=== PATIENT | male | born 1945 | race African-American/Black ===

== ENCOUNTER → 2021-02-09 | Day surgery (SDC) | payer MEDICARE ==
[~2021-02-09] MED LIST: ACETAMINOPHEN 500 MG TABLET PO PRN; AMLO5TAB4 PO; BALANCED SALT IRRIG SOLN NO.2 500 ML IO ONE; BENZONATATE 100 MG CAPSULE. PO PRN; BRIMONIDINE 0.2% OPHTH SOLUTION 5ML BOTTLE. OS ONE; CEFUROXIME OPHTH 4 MG/0.4 ML SYRINGE. OS ONE; CHONDROIT-SOD-HYALURONATE KIT. OS ONE; IBUPROFEN 200 MG TABLET PO PRN; IPRATRPIUM/ALBUTEROL 0.5/2.5MG 3 ML NEBU. NEB PRN; IV RINGERS SOLUTION,LACTATED 1,000 ML IV SCH; LIDO/EPI IN BSS OPHTH 2.7 ML SYRINGE. OS ONE; LIDOCAINE 2% JELLY 6ML IN APPLICATOR. ONE; MIDAZOLAM HCL PF 2 MG/2 ML VIAL. IV ONE; MIDAZOLAM HCL PF 2 MG/2 ML VIAL. ONE; ONDANSETRON PF 4 MG/2 ML VIAL. IV PRN; PHENYLEPHRINE 10% OPHTH SOLUTION 5ML BOTTLE. OS PRN; POVIDONE-IODINE 5% OPHTH SOLUTION 30ML BOTTLE. OS ONE; POVIDONE-IODINE 5% OPHTH SOLUTION 30ML BOTTLE. OS PRN; PROPARACAINE 0.5% OPHTH SOLUTION 15ML BOTTLE. OS ONE; PROPARACAINE 0.5% OPHTH SOLUTION 15ML BOTTLE. OS PRN; prednisoLONE ACETATE 1% OPHTH SUSPENSION 5ML BOTTLE. OS ONE
[2021-02-09] MEDS: PHENYLEPHRINE 2.5% OPHTH SOLUTION 2ML BOTTLE. OS SCH ×3 (12:02→12:13)
[2021-02-09] MEDS: TOBRAMYCIN 0.3% OPHTH SOLUTION 5ML BOTTLE. OS SCH ×2 (12:03→12:08)
[2021-02-09] MEDS: TROPICAMIDE 1% OPHTH SOLUTION 15ML BOTTLE. OS SCH ×3 (12:03→12:13)
[2021-02-09] MEDS: KETOROLAC TROMETHAMINE 0.5% OPHTH SOLUTION BOTTLE. OS SCH ×2 (12:03→12:08)
--- NOTE | 2021-02-09 13:31 | PDOC4 ---
SURGEON: Casa Bhatia MD Date of Procedure: 02/09/21 PREOP Diagnosis Visually significant cataract: Left Eye OS POSTOP Diagnosis Same PROCEDURE: Phaco w/ posterior chamber IOL: Left Eye OS ANESTHESIA Deep forniceal periocular 2% Lidocaine jelly Nuique/retro bulbar block with 2% Lidocaine with 0.5% Marcaine DESCRIPTION OF PROCEDURE The risks, benefits, and alternatives were discussed with the patient who elected to proceed. Informed consent was obtained in writing and placed in the chart After anesthetizing the eye topically, the patient was taken to the operating room, and the operative eye was prepped and draped in the usual sterile fashion for ocular surgery. A wire lid speculum was placed. A 1-mm clear corneal paracentesis incision was created with the side-port blade at a position three o'clock hours clockwise from the temporal cornea. Then, 1% non-preserved Lidocaine with epinephrine was injected into the anterior chamber followed by viscoelastic. Cotton-tipped applicators were used to stabilize the globe, and a 2.4 mm keratome was used to create a self-sealing incision in clear cornea at the temporal limbus. The Utrata forceps were used to create a continuous curvilinear capsulorrhexis. Balanced saline solution was injected via cannula beneath the capsulorrhexis edge to hydrodissect the lens nucleus and cortex from the lens capsule. The phacoemulsification handpiece and a chopping instrument were then used to remove the lens nucleus. The remaining epinuclear material and cortex were removed with the irrigation/aspiration handpiece. Vis coelastic was used to re-inflate the lens capsule, and the intraocular lens was injected directly into the capsular bag. The corneal wound edges were hydrated with balanced salt solution on a cannula and the irrigation/aspiration handpiece was used to extract the remaining viscoelastic. Cefuroxime 0.1mg/ml / Vigamox 0.5% was injected into the anterior chamber intracamerally. The wounds were inspected and found to be watertight at an appropriate intraocular pressure. Topical antibiotic drops were placed on the corneal surface. LRI: No If Yes, Number [] Cotter [] Length [] degrees Depth [] microns Incision Cotter: 180 Toric Lens Cotter [] Patch/shield with Maxitrol/Tobradex/Erythromycin ointment: Yes No Co-managed patients/postop examination stable for co-management with referring doctor. EBL EBL: None SPECIMANS COLLECTED Specimens Collected: None CASA BHATIA MD Feb 09, 2021 13:31
[2021-02-09 13:43] VITALS: BP 125/76
== END | disposition home or self-care (01) ==
LOC: SURG 11:27
PROVIDERS: ATTEND Ophthalmology
DX: H25.12 Age-related nuclear cataract, left eye (principal); I10 Essential (primary) hypertension; Z85.038 Personal history of other malignant neoplasm of large intestine; Z98.890 Other specified postprocedural states; Z79.899 Other long term (current) drug therapy; Z72.89 Other problems related to lifestyle; G62.9 Polyneuropathy, unspecified
CPT/HCPCS: 66984; J2250; V2632

== ENCOUNTER → 2021-02-23 | Day surgery (SDC) | payer MEDICARE ==
[~2021-02-23] MED LIST changes: +BRIMONIDINE 0.2% OPHTH SOLUTION 5ML BOTTLE. OD ONE; -BRIMONIDINE 0.2% OPHTH SOLUTION 5ML BOTTLE. OS ONE; +CEFUROXIME OPHTH 4 MG/0.4 ML SYRINGE. OD ONE; -CEFUROXIME OPHTH 4 MG/0.4 ML SYRINGE. OS ONE; +CHONDROIT-SOD-HYALURONATE KIT. OD ONE; -CHONDROIT-SOD-HYALURONATE KIT. OS ONE; +LIDO/EPI IN BSS OPHTH 2.7 ML SYRINGE. OD ONE; -LIDO/EPI IN BSS OPHTH 2.7 ML SYRINGE. OS ONE; +PHENYLEPHRINE 10% OPHTH SOLUTION 5ML BOTTLE. OD PRN; -PHENYLEPHRINE 10% OPHTH SOLUTION 5ML BOTTLE. OS PRN; +POVIDONE-IODINE 5% OPHTH SOLUTION 30ML BOTTLE. OD ONE; +POVIDONE-IODINE 5% OPHTH SOLUTION 30ML BOTTLE. OD PRN; -POVIDONE-IODINE 5% OPHTH SOLUTION 30ML BOTTLE. OS ONE; -POVIDONE-IODINE 5% OPHTH SOLUTION 30ML BOTTLE. OS PRN; +PROPARACAINE 0.5% OPHTH SOLUTION 15ML BOTTLE. OD ONE; +PROPARACAINE 0.5% OPHTH SOLUTION 15ML BOTTLE. OD PRN; -PROPARACAINE 0.5% OPHTH SOLUTION 15ML BOTTLE. OS ONE; -PROPARACAINE 0.5% OPHTH SOLUTION 15ML BOTTLE. OS PRN; +prednisoLONE ACETATE 1% OPHTH SUSPENSION 5ML BOTTLE. OD ONE; -prednisoLONE ACETATE 1% OPHTH SUSPENSION 5ML BOTTLE. OS ONE
[2021-02-23] MEDS: TROPICAMIDE 1% OPHTH SOLUTION 15ML BOTTLE. OD SCH ×3 (10:46→11:00)
[2021-02-23] MEDS: TOBRAMYCIN 0.3% OPHTH SOLUTION 5ML BOTTLE. OD SCH ×2 (10:47→10:51)
[2021-02-23] MEDS: PHENYLEPHRINE 2.5% OPHTH SOLUTION 2ML BOTTLE. OD SCH ×3 (10:47→11:00)
[2021-02-23] MEDS: KETOROLAC TROMETHAMINE 0.5% OPHTH SOLUTION BOTTLE. OD SCH ×2 (10:47→10:51)
--- NOTE | 2021-02-23 12:13 | PDOC4 ---
SURGEON: Casa Bhatia MD Date of Procedure: 02/23/21 PREOP Diagnosis Visually significant cataract: Right Eye OD POSTOP Diagnosis Same PROCEDURE: Phaco w/ posterior chamber IOL: Right Eye OD ANESTHESIA Deep forniceal periocular 2% Lidocaine jelly Unique/retro bulbar block with 2% Lidocaine with 0.5% Marcaine DESCRIPTION OF PROCEDURE The risks, benefits, and alternatives were discussed with the patient who elected to proceed. Informed consent was obtained in writing and placed in the chart After anesthetizing the eye topically, the patient was taken to the operating room, and the operative eye was prepped and draped in the usual sterile fashion for ocular surgery. A wire lid speculum was placed. A 1-mm clear corneal paracentesis incision was created with the side-port blade at a position three o'clock hours clockwise from the temporal cornea. Then, 1% non-preserved Lidocaine with epinephrine was injected into the anterior chamber followed by viscoelastic. Cotton-tipped applicators were used to stabilize the globe, and a 2.4 mm keratome was used to create a self-sealing incision in clear cornea at the temporal limbus. The Utrata forceps were used to create a continuous curvilinear capsulorrhexis. Balanced saline solution was injected via cannula beneath the capsulorrhexis edge to hydrodissect the lens nucleus and cortex from the lens capsule. The phacoemulsification handpiece and a chopping instrument were then used to remove the lens nucleus. The remaining epinuclear material and cortex were removed with the irrigation/aspiration handpiece. V iscoelastic was used to re-inflate the lens capsule, and the intraocular lens was injected directly into the capsular bag. The corneal wound edges were hydrated with balanced salt solution on a cannula and the irrigation/aspiration handpiece was used to extract the remaining viscoelastic. Cefuroxime 0.1mg/ml / Vigamox 0.5% was injected into the anterior chamber intracamerally. The wounds were inspected and found to be watertight at an appropriate intraocular pressure. Topical antibiotic drops were placed on the corneal surface. LRI: No If Yes, Number [] Chalmers [] Length [] degrees Depth [] microns Incision Chalmers: 180 Toric Lens Chalmers [] Patch/shield with Maxitrol/Tobradex/Erythromycin ointment: Yes No Co-managed patients/postop examination stable for co-management with referring doctor. EBL EBL: None SPECIMANS COLLECTED Specimens Collected: None CASA BHATIA MD February 23, 2021 12:13
[2021-02-23 12:23] VITALS: BP 128/69
== END | disposition home or self-care (01) ==
LOC: SURG 10:29
PROVIDERS: ATTEND Ophthalmology
DX: H25.11 Age-related nuclear cataract, right eye (principal); I10 Essential (primary) hypertension; G62.9 Polyneuropathy, unspecified; F17.210 Nicotine dependence, cigarettes, uncomplicated; Z79.899 Other long term (current) drug therapy; Z72.89 Other problems related to lifestyle; Z98.890 Other specified postprocedural states; Z85.038 Personal history of other malignant neoplasm of large intestine
CPT/HCPCS: 66984; J2250; V2632

== ENCOUNTER 2021-09-21 12:00 | Emergency (ER) | payer MEDICARE ==
[2021-02-23 12:23] VITALS: BP 128/69
[~2021-09-21] VITALS: Ht 177.8 cm; Wt 65.9 kg
[~2021-09-21 12:00] MED LIST changes: -ACETAMINOPHEN 500 MG TABLET PO PRN; -BALANCED SALT IRRIG SOLN NO.2 500 ML IO ONE; -BENZONATATE 100 MG CAPSULE. PO PRN; -BRIMONIDINE 0.2% OPHTH SOLUTION 5ML BOTTLE. OD ONE; -CEFUROXIME OPHTH 4 MG/0.4 ML SYRINGE. OD ONE; -CHONDROIT-SOD-HYALURONATE KIT. OD ONE; -IBUPROFEN 200 MG TABLET PO PRN; -IPRATRPIUM/ALBUTEROL 0.5/2.5MG 3 ML NEBU. NEB PRN; -IV RINGERS SOLUTION,LACTATED 1,000 ML IV SCH; -LIDO/EPI IN BSS OPHTH 2.7 ML SYRINGE. OD ONE; -LIDOCAINE 2% JELLY 6ML IN APPLICATOR. ONE; -MIDAZOLAM HCL PF 2 MG/2 ML VIAL. IV ONE; -MIDAZOLAM HCL PF 2 MG/2 ML VIAL. ONE; -ONDANSETRON PF 4 MG/2 ML VIAL. IV PRN; -PHENYLEPHRINE 10% OPHTH SOLUTION 5ML BOTTLE. OD PRN; -POVIDONE-IODINE 5% OPHTH SOLUTION 30ML BOTTLE. OD ONE; -POVIDONE-IODINE 5% OPHTH SOLUTION 30ML BOTTLE. OD PRN; -PROPARACAINE 0.5% OPHTH SOLUTION 15ML BOTTLE. OD ONE; -PROPARACAINE 0.5% OPHTH SOLUTION 15ML BOTTLE. OD PRN; -prednisoLONE ACETATE 1% OPHTH SUSPENSION 5ML BOTTLE. OD ONE
[2021-09-21] MEDS ORDERED: IV NORMAL SALINE 1,000ML 1,000 ML IV ONE (12:45)
[2021-09-21] MEDS ORDERED: ONDANSETRON PF 4 MG/2 ML VIAL. IVP ONE (12:45)
[2021-09-21] MEDS ORDERED: IOHEXOL 300 MG/ML 75 ML VIAL. IV ONE (12:45)
--- NOTE | 2021-09-21 12:47 | PHYS DOC ---
General Adult EDM: Chief Complaint: ABDOMINAL PAIN HPI: HPI: 76-year-old male presents with periumbilical abdominal pain. He has been having intermittent cramping for about a month. He presents today because he became more persistent overnight around midnight and has continued until now. He describes it as a moderate intensity sharp cramping sensation around the umbilicus. The patient is being treated with chemotherapy for colon cancer. He wonders if he is constipated. He has had small pellet stool lately. He denies fever or chills. Denies blood in the stool. Review of Systems: Review of Systems: Constitutional: Denies fever or chills Eyes: Denies change in visual acuity HENT: Denies nasal congestion or sore throat Respiratory: Denies cough or shortness of breath Cardiovascular: Denies chest pain or edema GI: Periumbilical abdominal pain, constipation. Denies nausea, vomiting, bloody stools or diarrhea : Denies dysuria Musculoskeletal: Denies back pain or joint pain Integument: Denies rash Neurologic: Denies headache, focal weakness or sensory changes Endocrine: Denies polyuria or polydipsia Lymphatic: Denies swollen glands Psychiatric: Denies depression or anxiety Allergies: Allergies: Allergies Coded Allergies Type Severity Reaction Last Updated Verified No Known Drug Allergies 02/09/21 No Physical Exam: PE: Constitutional: Well developed, well nourished, no acute distress, non-toxic appearance. [] HENT: Normocephalic, atraumatic, bilateral external ears normal, oropharynx moist, no oral exudates, nose normal. [] Eyes: PERRLA, EOMI, conjunctiva normal, no discharge. [] Neck: Normal range of motion, no tenderness, supple, no stridor. [] Cardiovascular: Heart rate regular rhythm, no murmur [] Lungs & Thorax: Bilateral breath sounds clear to auscultation [] Abdomen: Bowel sounds normal, soft, mild periumbilical tenderness, no masses, no pulsatile masses. [] Skin: Warm, dry, no erythema, no rash. [] Back: No tenderness, no CVA tenderness. [] Extremities: No tenderness, no cyanosis, no clubbing, ROM intact, no edema. [] Neurologic: Alert and oriented X 3, normal motor function, normal sensory function, no focal deficits noted. [] Psychologic: Affect normal, judgement normal, mood normal. [] EKG: EKG: [] Radiology/Procedures: Radiology/Procedures: [] Impressions: EXAM: CT Abdomen and Pelvis without IV contrast CLINICAL HISTORY: Reason: COLON CANCER, SCANS COMPLETED AT COMPARISON: none TECHNIQUE: Helical CT of the abdomen and pelvis without intravenous contrast. Axial, coronal and sagittal reformatted images were generated. PQRS compliance statement - One or more of the following individualized dose reduction techniques were utilized for this study: 1. Automated exposure control 2. Adjustment of the mA and/or kV according to patient size 3. Use of iterative reconstruction technique FINDINGS: Lack of intravenous contrast limits evaluation of solid organs, vasculature, and lymph nodes. Lower chest: Lung bases are clear. Abdomen and Pelvis: Several low density hepatic lesions are seen, for example a right hepatic dome lesion measures 13 mm. High density material dependently within the gallbladder likely sludge. No biliary ductal dilatation. Pancreas is unremarkable. Spleen is normal in appearance. Adrenal glands aren't remarkable. Right upper pole renal cyst. No hydronephrosis. No hydroureter. No renal tract calculus. Bladder is grossly unremarkable. Appendix is unremarkable. Moderate colonic stool content is seen. No small or large bowel dilatation. There is thickening of the sigmoid colon, likely corresponds to provided history of colon cancer. Mild infiltration about the left colon. No abdominal or pelvic lymphadenopathy. No abdominal or pelvic ascites. Bones: No aggressive osseous lesion. Hip joint degenerative changes are seen. Degenerative changes of spine are seen. IMPRESSION: 1. There is thickening of the sigmoid colon, which may correlate with provided history of hemorrhagic colonic malignancy. 2. There is infiltration about the left colon, which may represent colitis. 3. Low-density hepatic lesions, metastatic disease is not excluded and can be correlated with prior imaging or MRI. 4. Within the constraints of this noncontrast examination, no abdominal or pelvic lymphadenopathy is identified. 5. Moderate colonic stool content. Electronically signed by: Yair Washington MD (09/21/2021 2:34 PM) [facility] DICTATED AND SIGNED BY: YAIR WASHINGTON MD DATE: 09/21/21 1414 CC: DEBORA ADRIAN DO; MICHELLE PENNINGTON MD, MPH ~MTH0 0 Heart Score: C/O Chest Pain: N/A Risk Factors: Risk Factors: DM, Current or recent (<one month) smoker, HTN, HLP, family history of CAD, obesity. Risk Scores: Score 0 - 3: 2.5% MACE over next 6 weeks - Discharge Home Score 4 - 6: 20.3% MACE over next 6 weeks - Admit for Clinical Observation Score 7 - 10: 72.7% MACE over next 6 weeks - Early Invasive Strategies Course & Med Decision Making: Course & Med Decision Making Pertinent Labs and Imaging studies reviewed. (See chart for details) The patient's labs are unremarkable except for an elevated creatinine of 1.9. I have no previous in the chart for comparison. The CT of the abdomen and pelvis does show some thickening of the sigmoid colon consistent with cancer history. There is also evidence of colitis and moderate stool burden. I will treat the patient with Augmentin for 7 days I recommend bowel cleanout with magnesium citrate. He is stable for discharge at this time. [] Dragon Disclaimer: Dragon Disclaimer: This electronic medical record was generated, in whole or in part, using a voice recognition dictation system. Departure Departure: Impression: Primary Impression: Colitis Additional Impression: Constipation Disposition: 01 HOME / SELF CARE / HOMELESS Condition: STABLE Referrals: MICHELLE PENNINGTON MD, MPH (PCP) Patient Instructions: Colitis, Constipation, Adult, [id number] Additional Instructions: You could drink 1/2-1 full bottle of magnesium citrate to help with your constipation. DEBORA ADRIAN DO Sep 21, 2021 12:47
[2021-09-21 12:54] LABS: BASO # 0.1 x10^3/uL (0.0-0.2); BASO % 1 % (0-3); EOS % 0 % (0-3); HEMATOCRIT 41.7 % (39.0-53.0); HEMOGLOBIN 13.7 g/dL (13.0-17.5); LYMPH # 1.1 x10^3/uL (1.0-4.8); LYMPH % 11 % (24-48); MEAN CORPUSCULAR HEMOGLOBIN 32 pg (25-35); MEAN CORPUSCULAR HGB CONC 33 g/dL (31-37); MEAN CORPUSCULAR VOLUME 98 fL (79-100); MONO # 0.5 x10^3/uL (0.0-1.1); MONO % 5 % (0-9); NEUT # 8.4 x10^3uL (1.8-7.7); NEUT % 83 % (31-73); PLATELET COUNT 284 x10^3/uL (140-400); RED BLOOD COUNT 4.27 x10^6/uL (4.30-5.70); RED CELL DISTRIBUTION WIDTH 13.8 % (11.5-14.5); WHITE BLOOD COUNT 10.1 x10^3/uL (4.0-11.0)
[2021-09-21 13:04] LABS: CALCIUM 8.5 mg/dL (8.5-10.1); CREATININE 1.9 mg/dL (0.7-1.3); GFR 42.1; POTASSIUM 4.8 mmol/L (3.5-5.1)
[2021-09-21 13:10] LABS: ALBUMIN 3.2 g/dL (3.4-5.0); ALBUMIN/GLOBULIN RATIO 0.8 (1.0-1.7); TOTAL BILIRUBIN 0.4 mg/dL (0.2-1.0); TOTAL PROTEIN 7.4 g/dL (6.4-8.2)
--- NOTE | 2021-09-21 14:36 | RAD ---
EXAM: CT Abdomen and Pelvis without IV contrast CLINICAL HISTORY: Reason: COLON CANCER, SCANS COMPLETED AT [facility] COMPARISON: none TECHNIQUE: Helical CT of the abdomen and pelvis without intravenous contrast. Axial, coronal and sagi ttal reformatted images were generated. PQRS compliance statement - One or more of the following individualized dose reduction techniques wer e utilized for this study: 1. Automated exposure control 2. Adjustment of the mA and/or kV according to patient size 3. Use of iterative reconstruction technique FINDINGS: Lack of intravenous contrast limits evaluation of solid organs, vasculature, and lymph nodes. Lower chest: Lung bases are clear. Abdomen and Pelvis: Several low density hepatic lesions are seen, for example a right hepatic dome lesion measures 13 mm. High density material dependently within the gallbladder likely sludge. No biliary ductal dilatation . Pancreas is unremarkable. Spleen is normal in appearance. Adrenal glands aren't remarkable. Right u pper pole renal cyst. No hydronephrosis. No hydroureter. No renal tract calculus. Bladder is grossly unremarkable. Appendix is unremarkable. Moderate colonic stool content is seen. No small or large bow el dilatation. There is thickening of the sigmoid colon, likely corresponds to provided history of co donnie cancer. Mild infiltration about the left colon. No abdominal or pelvic lymphadenopathy. No abdomi nal or pelvic ascites. Bones: No aggressive osseous lesion. Hip joint degenerative changes are seen. Degenerative changes of spine are seen. IMPRESSION: 1. There is thickening of the sigmoid colon, which may correlate with provided history of hemorrhagi c colonic malignancy. 2. There is infiltration about the left colon, which may represent colitis. 3. Low-density hepatic lesions, metastatic disease is not excluded and can be correlated with prior imaging or MRI. 4. Within the constraints of this noncontrast examination, no abdominal or pelvic lymphadenopathy is identified. 5. Moderate colonic stool content. Electronically signed by: Yair Washington MD (09/21/2021 2:34 PM) [facility]
[2021-09-21] MEDS ORDERED: AMOX1TAB61 PO (15:24)
== END 2021-09-21 15:38 | disposition home or self-care (01) ==
LOC: ER 12:00
DX: K52.9 Noninfective gastroenteritis and colitis, unspecified (principal); K59.00 Constipation, unspecified
CPT/HCPCS: 36415; 74176; 80053; 85025; 96361; 96374; 99284; J2405; J7030

== ENCOUNTER 2021-10-09 18:21 | Emergency (ER) | payer MEDICARE ==
[~2021-10-09] VITALS: Ht 177.8 cm; Wt 65.9 kg
[~2021-10-09 18:21] MED LIST changes: +AMOX1TAB61 PO
[2021-10-09] MEDS ORDERED: IV NORMAL SALINE 500ML 500 ML IV ONE (19:15)
--- NOTE | 2021-10-09 19:17 | PHYS DOC ---
Past History Additional Past Medical Histor: COLON CANCER Past Surgical History: No Surgical History Alcohol Use: None General Adult EDM: Chief Complaint: ABDOMINAL PAIN HPI: HPI: Patient is a 76-year-old male presenting with severe lower abdominal pain. Patient states he has had the pain for the past few weeks and was seen here and diagnosed with colitis. Patient states he completed his antibiotics and says he was feeling better but has not been getting worse throughout the day. Has had some nausea this morning, no vomiting. States he was worried he was constipated so he took some mag citrate and had a large bowel movement but it did not affect the pain. Denies any hematuria or dysuria, denies melena or bloody stools. he h as a history of colon cancer and has been getting chemotherapy, is down to 1 chemo infused medication, and cannot remember the name of it. Denies any history of radiation. Denies any fever or chills. Review of Systems: Review of Systems: All other systems within normal limits except for as noted in the HPI Current Medications: Current Meds: Current Medications Medications (Trade) Dose Ordered Sig/Gonzalo Start Time Stop Time Status Last Admin Dose Admin Fentanyl Citrate (Fentanyl 2ml Vial) 50 mcg 1X ONCE 10/09/21 19:15 10/09/21 19:16 UNV Sodium Chloride 500 ml @ 0 mls/hr 1X ONCE 10/09/21 19:15 10/09/21 19:16 UNV Allergies: Allergies: Allergies Coded Allergies Type Severity Reaction Last Updated Verified No Known Drug Allergies 02/09/21 No Physical Exam: PE: Constitutional: Well developed, well nourished, no acute distress, non-toxic appearance. [] HENT: Normocephalic, atraumatic, bilateral external ears normal, nose normal. [] Eyes: PERRLA, conjunctiva normal, no discharge. [] Neck: No rigidity, supple, no stridor. [] Cardiovascular: Regular rate and rhythm, brisk cap refill [] Lungs & Thorax: Non labored symmetric respirations, no tachypnea or respiratory distress [] Abdomen: Soft, nondistended, left lower quadrant tenderness with guarding. Skin: Warm, dry, no erythema, no rash. [] Back: Unremarkable Extremities: No deformities, range of motion grossly intact, no lower extremity edema [] Neurologic: Alert and oriented X 3, no focal deficits noted. [] Psychologic: Affect normal, judgement normal, mood normal. [] Current Patient Data: Vital Signs: Vital Signs Date Time Temp Pulse Resp B/P (MAP) Pulse Ox O2 Delivery O2 Flow Rate FiO2 10/09/21 18:36 98.0 75 18 129/72 (91) 98 Room Air EKG: EKG: [] Radiology/Procedures: Radiology/Procedures: [address] [id number] IMAGING REPORT Signed PATIENT: LAURI MANZO ACCOUNT: [id number] : 1945 LOCATION: ER AGE: 76 SEX: M EXAM STATUS: REG ER ORD. PHYSICIAN: RASHIDA ALAMO MD REASON: LLQ pain, H/O COLON CA., OMNI 300, 60ml PROCEDURE: CT ABD PELV W/ IV CONTRST ONLY Exam: CT of abdomen and pelvis with contrast INDICATION: Left lower quadrant pain TECHNIQUE: Sequential axial images through the abdomen and pelvis obtained following the administration of 60 mL of Isovue-370 IV contrast. Sagittal and coronal reformatted images were reconstructed from the axial data and reviewed. Exposure: One or more of the following in the visualized dose reduction techniques were utilized for this examination: 1. Automated exposure control 2. Adjustment of the MA and/or KV according to patient size 3. Use of iterative of reconstructive technique Comparisons: 09/21/2021 FINDINGS: Heart size is normal. No pericardial effusion. Visualized lung bases are clear. No pleural effusion. Several vague hypoattenuating lesions are noted within the liver, the largest along the lateral aspect of the right hepatic lobe which measures approximately 3.9 x 2.8 cm. Spleen, pancreas, gallbladder and adrenals are unremarkable. No perinephric inflammation or hydronephrosis. No renal or ureteral calculi are identified. Bladder is partially distended and not well evaluated. Prostate is not enlarged. Short segment of severe wall thickening involving the sigmoid colon. The more proximal colon is distended with stool. Remainder large and small bowel are unremarkable. No free intra-abdominal air or fluid. Abdominal aorta has a normal course and caliber. Abdominal vasculature is patent. No enlarged intra-abdominal lymph nodes are identified. No suspicious osseous lesions or acute fractures. IMPRESSION: 1. Short segment wall thickening at the sigmoid colon likely related to malignancy given history of colon cancer. There is stool-filled distention of the more proximal colon, difficult to exclude partial obstruction at this site. 2. Several vague hypoattenuating lesions noted in the liver suspicious for hepatic metastases. Electronically signed by: Jay Luis MD (10/09/2021 8:25 PM) [facility] DICTATED AND SIGNED BY: JAY LUIS MD DATE: 10/09/212018 CC: RASHIDA ALAMO MD; MICHELLE PENNINGTON MD, MPH ~MTH0 0 [] Heart Score: C/O Chest Pain: No Risk Factors: Risk Factors: DM, Current or recent (<one month) smoker, HTN, HLP, family history of CAD, obesity. Risk Scores: Score 0 - 3: 2.5% MACE over next 6 weeks - Discharge Home Score 4 - 6: 20.3% MACE over next 6 weeks - Admit for Clinical Observation Score 7 - 10: 72.7% MACE over next 6 weeks - Early Invasive Strategies Course & Med Decision Making: Course & Med Decision Making Pertinent Labs and Imaging studies reviewed. (See chart for details) Patient still has inflammation of the colon, per chart review he was 1 treated with 7 days of antibiotics for his previous colitis. Discussed longer treatment with more broad-spectrum antibiotics. Discussed findings of possible partial bowel obstruction, however patient recently had a very large bowel movement. Discussed transferring to a different hospital that has surgical services. Patient does not want to stay in the hospital or be transferred to another hospital. Patient voices understanding of the risks associated with a complete bowel obstruction. Discussed that he can be discharged home with a liquid diet and stool softeners with strict return precautions. Discussed strict follow-up with his oncologist for the possibility of a colonic mass causing obstruction. Dragon Disclaimer: Dragon Disclaimer: This electronic medical record was generated, in whole or in part, using a voice recognition dictation system. Departure Departure: Impression: Primary Impression: Colitis Disposition: 01 HOME / SELF CARE / HOMELESS Condition: STABLE Referrals: MICHELLE PENNINGTON MD, MPH (PCP) Patient Instructions: Colitis Additional Instructions: Please follow-up with your oncologist regarding possible bowel obstruction. Start with a liquid diet at home and use a stool softener such as MiraLAX until you are having regular soft bowel movements. Scripts Hydrocodone Bit/Acetaminophen (HYDROCODONE-APAP 5-325 ) 1 Each Tablet 1 TAB PO PRN Q6HRS PRN for PAIN for 3 Days, #12 TAB 0 Refills Prov: RASHIDA ALAMO MD 10/09/21 Ciprofloxacin Hcl (CIPRO) 500 Mg Tablet 1 TAB PO BID for antibiotic for 14 Days, #28 TAB 0 Refills Prov: RASHIDA ALAMO MD 10/09/21 Metronidazole (METRONIDAZOLE) 500 Mg Tablet 1 TAB PO TID for antibiotic for 10 Days, #14 TAB 0 Refills Prov: RASHIDA ALAMO MD 10/09/21 RASHIDA ALAMO MD Oct 09, 2021 19:17
[2021-10-09] MEDS ORDERED: CONTRAST GIVEN. MC PRN (19:30)
[2021-10-09] MEDS ORDERED: IOHEXOL 300 MG/ML 75 ML VIAL. IV ONE (19:30)
[2021-10-09 19:33] LABS: BASO # 0.1 x10^3/uL (0.0-0.2); BASO % 1 % (0-3); EOS # 0.1 x10^3/uL (0.0-0.7); EOS % 1 % (0-3); HEMATOCRIT 42.2 % (39.0-53.0); LYMPH # 1.8 x10^3/uL (1.0-4.8); LYMPH % 17 % (24-48); MEAN CORPUSCULAR HEMOGLOBIN 33 pg (25-35); MEAN CORPUSCULAR HGB CONC 33 g/dL (31-37); MEAN CORPUSCULAR VOLUME 98 fL (79-100); MONO # 0.6 x10^3/uL (0.0-1.1); MONO % 6 % (0-9); NEUT # 8.1 x10^3uL (1.8-7.7); NEUT % 75 % (31-73); PLATELET COUNT 372 x10^3/uL (140-400); RED BLOOD COUNT 4.32 x10^6/uL (4.30-5.70); RED CELL DISTRIBUTION WIDTH 13.5 % (11.5-14.5); WHITE BLOOD COUNT 10.7 x10^3/uL (4.0-11.0)
[2021-10-09 19:44] LABS: CALCIUM 9.1 mg/dL (8.5-10.1); CREATININE 1.8 mg/dL (0.7-1.3); GFR 44.9; POTASSIUM 4.2 mmol/L (3.5-5.1)
[2021-10-09 19:50] LABS: ALBUMIN 3.3 g/dL (3.4-5.0); ALBUMIN/GLOBULIN RATIO 0.7 (1.0-1.7); TOTAL BILIRUBIN 0.2 mg/dL (0.2-1.0); TOTAL PROTEIN 8.2 g/dL (6.4-8.2)
--- NOTE | 2021-10-09 20:28 | RAD ---
Exam: CT of abdomen and pelvis with contrast INDICATION: Left lower quadrant pain TECHNIQUE: Sequential axial images through the abdomen and pelvis obtained following the administrati on of 60 mL of Isovue-370 IV contrast. Sagittal and coronal reformatted images were reconstructed fro m the axial data and reviewed. Exposure: One or more of the following in the visualized dose reduction techniques were utilized for this examination: 1. Automated exposure control 2. Adjustment of the MA and/or KV according to patient size 3. Use of iterative of reconstructive technique Comparisons: 09/21/2021 FINDINGS: Heart size is normal. No pericardial effusion. Visualized lung bases are clear. No pleural effusion. Several vague hypoattenuating lesions are noted within the liver, the largest along the lateral aspec t of the right hepatic lobe which measures approximately 3.9 x 2.8 cm. Spleen, pancreas, gallbladder and adrenals are unremarkable. No perinephric inflammation or hydronephrosis. No renal or ureteral calculi are identified. Bladder is partially distended and not well evaluated. Prostate is not enlarged. Short segment of severe wall thickening involving the sigmoid colon. The more proximal colon is diste nded with stool. Remainder large and small bowel are unremarkable. No free intra-abdominal air or flu id. Abdominal aorta has a normal course and caliber. Abdominal vasculature is patent. No enlarged intra-abdominal lymph nodes are identified. No suspicious osseous lesions or acute fractures. IMPRESSION: 1. Short segment wall thickening at the sigmoid colon likely related to malignancy given history of colon cancer. There is stool-filled distention of the more proximal colon, difficult to exclude parti al obstruction at this site. 2. Several vague hypoattenuating lesions noted in the liver suspicious for hepatic metastases. Electronically signed by: Jay Briseno MD (10/09/2021 8:25 PM) [facility]
[2021-10-09] MEDS ORDERED: CIPROFLOXACIN HCL 500 MG TABLET PO ONE (20:45)
[2021-10-09] MEDS ORDERED: oxyCODONE/APAP 10/325 1 TAB TABLET PO ONE (20:45)
[2021-10-09] MEDS ORDERED: metroNIDAZOLE 500 MG TABLET PO ONE (20:45)
[2021-10-09] MEDS ORDERED: METR-34 PO (20:51)
[2021-10-09] MEDS ORDERED: CIPR500T94 PO (20:51)
[2021-10-09] MEDS ORDERED: HYDR-2155 PO (20:52)
[2021-10-09 21:13] VITALS: BP 140/68
== END 2021-10-09 21:20 | disposition home or self-care (01) ==
LOC: ER 18:21
DX: K52.9 Noninfective gastroenteritis and colitis, unspecified (principal); Z85.038 Personal history of other malignant neoplasm of large intestine
CPT/HCPCS: 36415; 74177; 80053; 83690; 85025; 96361; 96374; 99285; J3010; J7040; Q9967

== ENCOUNTER 2021-10-12 20:35 | Emergency (ER) | payer MEDICARE ==
[~2021-10-12] VITALS: Ht 177.8 cm; Wt 65.9 kg
[~2021-10-12 20:35] MED LIST changes: +CIPR500T94 PO; +HYDR-2155 PO; +METR-34 PO
[2021-10-12 20:45] VITALS: BP 132/86
--- NOTE | 2021-10-12 21:04 | PHYS DOC ---
Past History Additional Past Medical Histor: COLON CANCER (BRIAN MONTGOMERY ADMINISTRATIVE ASSISTANT RECEPTIONIST) Past Surgical History: No Surgical History (BRIAN MONTGOMERY APRN) Alcohol Use: None (BRIAN MONTGOMERY APRN) Adult General Chief Complaint Chief Complaint: URINARY RETENTION HPI HPI Patient is a 76-year-old male patient with history of colon cancer a couple years back, presented to the ED today complaining of urinary retention. Patient states he has not voided well since this morning. He states he has to push on his bladder to get any urine out. He states he has history of BPH and used to b e on Flomax and used a straight catheter himself. He states he was started cipro and flagyl for colitis three days in our ED he got from our ED 2 days ago colitis. Patient states he thinks the antibiotics are causing him urinary retention. Denies any fever, nausea, vomiting, back pain, dysuria, urgency or frequency. He states he does not want to go home with a Ang catheter, he states he knows how to straight cath himself and would like to do it in the ED and he will buy supplies tomorrow morning. He states the pharmacy was closed this evening hence the reason he came to the ED. He states he has a urologist at [facility]. (BRIAN MONTGOMERY ADMINISTRATIVE ASSISTANT RECEPTIONIST) Review of Systems Review of Systems Constitutional: Denies fever or chills [] GI: Denies abdominal pain, nausea, vomiting, bloody stools or diarrhea [] : Reports urinary retention denies dysuria or hematuria [] Musculoskeletal: Denies back pain or joint pain [] Integument: Denies rash or skin lesions [] Neurologic: Denies headache, focal weakness or sensory changes [] All other systems were reviewed and found to be within normal limits, except as documented in this note. (BRIAN MONTGOMERY ADMINISTRATIVE ASSISTANT RECEPTIONIST) Allergies Allergies Allergies Coded Allergies Type Severity Reaction Last Updated Verified No Known Drug Allergies 02/09/21 No (BRIAN MONTGOMERY APRN) Physical Exam Physical Exam Constitutional: Well developed, well nourished, no acute distress, non-toxic appearance. [] Abdomen: Bowel sounds normal, soft, no tenderness, no masses, no pulsatile masses. [] Skin: Warm, dry, no erythema, no rash. [] Back: No tenderness, no CVA tenderness. [] Extremities: No tenderness, no cyanosis, no clubbing, ROM intact, no edema. [] Neurologic: Alert and oriented X 3, normal motor function, normal sensory function, no focal deficits noted. [] Psychologic: Affect normal, judgement normal, mood normal. [] (BRIAN MONTGOMERY APRN) Current Patient Data Vital Signs Vital Signs Date Time Temp Pulse Resp B/P (MAP) Pulse Ox O2 Delivery O2 Flow Rate FiO2 10/12/21 20:45 80 18 132/86 (101) 99 (BRIAN MONTGOMERY APRN) EKG EKG [] (BRIAN MONTGOMERY APRN) Radiology/Procedures Radiology/Procedures [] (BRIAN MONTGOMERY APRN) Heart Score C/O Chest Pain: N/A Risk Factors: Risk Factors: DM, Current or recent (<one month) smoker, HTN, HLP, family history of CAD, obesity. Risk Scores: Risk Factors: DM, Current or recent (<one month) smoker, HTN, HLP, family history of CAD, obesity. (BRIAN MONTGOMERY APRN) Course & Med Decision Making Course & Med Decision Making Pertinent Labs and Imaging studies reviewed. (See chart for details) This is a [age]-year-old male patient with a history of BPH presenting today complaining of urinary retention that began this morning. Patient was seen in the ED 3 days ago and was diagnosed with colitis, he is currently on Flagyl and Cipro, he states he used to straight cath himself but currently has no straight cath kit at home and the pharmacy is closed. He is refusing a Ang catheter. He has a urologist at [facility] and states he will follow-up next week. BVI in the ED 100 ml. He was provided straight cath supplies and discharged instructions to follow-up with the urologist at [facility]. Rx for Flomax provided (BRIAN MONTGOMERY APRN) Course & Med Decision Making Did not see or evaluate patient. Did not discuss patient with CHRISTMAS TREE CONTRACTOR. Agree with CHRISTMAS TREE CONTRACTOR's work-up and disposition per note. (ELVIRA GUILLAUME MD) Dragon Disclaimer Dragon Disclaimer This electronic medical record was generated, in whole or in part, using a voice recognition dictation system. (BRIAN MONTGOMERY APRN) Departure Departure: Impression: Primary Impression: Urinary retention Disposition: HOME / SELF CARE / HOMELESS Condition: STABLE Referrals: MICHELLE PENNINGTON MD, MPH (PCP) amadou up with your primary care doctor and urologist next week Patient Instructions: Urinary Retention, Acute, Male, [id number] Additional Instructions: You were evaluated in the emergency room. He did not have any significant urinary retention. Please follow-up with your urologist at [facility] next week. Come back to the ED at any point symptoms worsen. Ensure you take the Flomax prescribed Scripts Tamsulosin Hcl (FLOMAX) 0.4 Mg Cap.er.24h 1 CAP PO DAILY, #30 CAP Prov: BRIAN MONTGOMERY APRN 10/12/21 BRIAN MONTGOMERY APRN Oct 12, 2021 21:04 ELVIRA GUILLAUME MD Oct 12, 2021 22:45
[2021-10-12] MEDS ORDERED: TAMS0.4C97 PO (21:17)
== END 2021-10-12 21:36 | disposition home or self-care (01) ==
LOC: ER 20:35
DX: R33.9 Retention of urine, unspecified (principal); Z85.038 Personal history of other malignant neoplasm of large intestine
CPT/HCPCS: 99284; P9612

== ENCOUNTER 2021-10-15 14:47 | Emergency (ER) | payer MEDICARE ==
[~2021-10-15] VITALS: Ht 177.8 cm; Wt 62.2 kg
[~2021-10-15 14:47] MED LIST changes: +TAMS0.4C97 PO
[2021-10-15] MEDS ORDERED: IOHEXOL 300 MG/ML 75 ML VIAL. IV ONE (17:00)
--- NOTE | 2021-10-15 17:14 | PHYS DOC ---
Past History Past Medical History: Hypertension Additional Past Medical Histor: COLON CANCER,ERECTILE DYSFUCTION Past Surgical History: No Surgical History Smoking: Less than 1pk/day Alcohol Use: None General Adult EDM: Chief Complaint: PAIN CONTROL HPI: HPI: Patient is a 76-year-old male presents with abdominal pain. Patient states he has a history of colon cancer and is currently doing chemo treatments. Patient was seen here in the ER a couple weeks ago for urinary retention. Patient reports that he is not having issues with urination at this point. Last bowel movement was 3 days ago. Patient states he takes daily MiraLAX which has not helped with bowel movements. Patient is also taking daily pain medications for colon cancer. Denies nausea or vomiting. Denies chest pain or shortness of breath. Denies fevers. Review of Systems: Review of Systems: Constitutional: Denies fever or chills Eyes: Denies change in visual acuity HENT: Denies nasal congestion or sore throat Respiratory: Denies cough or shortness of breath Cardiovascular: Denies chest pain or edema GI: Denies abdominal pain, nausea, vomiting, bloody stools or diarrhea : Denies dysuria Musculoskeletal: Denies back pain or joint pain Integument: Denies rash Neurologic: Denies headache, focal weakness or sensory changes Endocrine: Denies polyuria or polydipsia Lymphatic: Denies swollen glands Psychiatric: Denies depression or anxiety Current Medications: Current Meds: Current Medications Medications (Trade) Dose Ordered Sig/Gonzalo Start Time Stop Time Status Last Admin Dose Admin Fentanyl Citrate (Fentanyl 2ml Vial) 50 mcg 1X ONCE 10/15/21 16:45 10/15/21 16:46 DC 10/15/21 16:45 50 MCG Iohexol (Omnipaque 300 Mg/ml) 75 ml 1X ONCE 10/15/21 17:00 10/15/21 17:01 DC Allergies: Allergies: Allergies Coded Allergies Type Severity Reaction Last Updated Verified No Known Drug Allergies 02/09/21 No Physical Exam: PE: Constitutional: Well developed, well nourished, no acute distress, non-toxic appearance. [] HENT: Normocephalic, atraumatic, bilateral external ears normal, oropharynx moist, no oral exudates, nose normal. [] Eyes: PERRLA, EOMI, conjunctiva normal, no discharge. [] Neck: Normal range of motion, no tenderness, supple, no stridor. [] Cardiovascular:Heart rate regular rhythm, no murmur [] Lungs & Thorax: Bilateral breath sounds clear to auscultation [] Abdomen: Bowel sounds normal, distended, lower abdominal tenderness, no masses, no pulsatile masses. [] Skin: Warm, dry, no erythema, no rash. [] Back: No tenderness, no CVA tenderness. [] Extremities: No tenderness, no cyanosis, no clubbing, ROM intact, no edema. [] Neurologic: Alert and oriented X 3, normal motor function, normal sensory function, no focal deficits noted. [] Psychologic: Affect normal, judgement normal, mood normal. [] Current Patient Data: Vital Signs: Vital Signs Date Time Temp Pulse Resp B/P (MAP) Pulse Ox O2 Delivery O2 Flow Rate FiO2 10/15/21 16:45 18 97 Room Air 10/15/21 16:25 97.8 83 163/100 (121) EKG: EKG: [] Radiology/Procedures: Radiology/Procedures: []EXAM: CT Abdomen and Pelvis with IV contrast CLINICAL HISTORY: Reason: DIFFUSE ABDOMINAL PAIN, COLITIS, COMPARE TO RECENT CT 10/03. Instructions: REDUCED DOSE TO 60ML IV OMNI 300 / History: . COMPARISON: 10/09/2021 and 09/21/2021 TECHNIQUE: Helical CT of the abdomen and pelvis was performed following the administration of intravenous contrast. Without oral contrast Axial, coronal and sagittal reformatted images were generated. PQRS compliance statement - One or more of the following individualized dose reduction techniques were utilized for this study: 1. Automated exposure control 2. Adjustment of the mA and/or kV according to patient size 3. Use of iterative reconstruction technique FINDINGS: Lower Chest: Visualized lung bases are clear. Minimal subsegmental atelectasis within the right middle lobe. Heart size is normal. Abdomen and Pelvis: Redemonstrated several hypoattenuating lesions seen throughout the liver, largest lesion resides in the right hepatic lobe measuring up to 4 cm. The gallbladder is unremarkable. No biliary dilation. The spleen, adrenals, and pancreas are unremarkable. No perinephric inflammation or hydronephrosis. No obstructing nephrolithiasis or hydroureteronephrosis. Redemonstrated 4.5 cm area of wall thickening with severe luminal narrowing secondary to a intraluminal mass at the distal sigmoid colon as seen on axial image 70 and sagittal image 29. Interval extensive progressive distention of the large bowel appears to be originating from the area of severe narrowing with fluid and air distending the large bowel up to 7.3 cm in maximal diameter. There is no significant bowel wall thickening or surrounding inflammatory changes. Appendix is normal. There is no evidence of volvulus at this time. Small bowel is unremarkable. No free intra-abdominal air or free fluid. No pathologically enlarged abdominal or pelvic adenopathy. Vasculature appears normal in course and caliber. Urinary bladder is unremarkable. Similar appearance of the enlarged prostate gland. No suspicious or acute osseous abnormalities. Intra-abdominal wall is unremarkable. IMPRESSION: 1. Redemonstrated intraluminal mass in the distal sigmoid colon likely resulting in high-grade partial obstruction as there is interval development of air and fluid distention of the entire portion of the large bowel, currently measuring up to 7.3 cm in maximal diameter. There is no apparent colonic wall thickening or surrounding inflammatory changes. 2. Similar several hypoattenuating lesions in the liver highly suspicious for hepatic metastasis. Correlation with prior imaging or MRI. 3. Other chronic/incidental findings, as above. Electronically signed by: Trav Heath DO (10/15/2021 5:57 PM) [facility] Heart Score: C/O Chest Pain: No Risk Factors: Risk Factors: DM, Current or recent (<one month) smoker, HTN, HLP, family history of CAD, obesity. Risk Scores: Score 0 - 3: 2.5% MACE over next 6 weeks - Discharge Home Score 4 - 6: 20.3% MACE over next 6 weeks - Admit for Clinical Observation Score 7 - 10: 72.7% MACE over next 6 weeks - Early Invasive Strategies Course & Med Decision Making: Course & Med Decision Making Pertinent Labs and Imaging studies reviewed. (See chart for details) [] 76-year-old male presents with lower abdominal pain. Patient has history of colon cancer. Last bowel movement was 3 days ago. Work-up in ER consisted of CBC, BMP, UA, CT abdomen pelvis. Patient's pain was treated while in the ER. CT of abdomen and pelvis shows intraluminal mass in the distal sigmoid colon likely resulting in high-grade partial obstruction as there is interval development of air and fluid distention of the entire portion of the large bowel, currently measuring up to 7.3 cm in maximal diameter. Patient also has possible hepatic metastasis. BUN 27, creatinine 2.2. Lactic acid 0.7. Discussed all results with patient. Advised patient that he would need to be transferred to for further management. Patient is currently being seen for his colon cancer at [facility]. All images clouded to [facility]. Patient is complaining of abdominal pain. Patient given second dose of pain medication along with Zofran for nausea. Spoke with transfer team. Patient will be accepted at for bowel obstruction, colon cancer. Patient will be accepted by Dr.Uiad Frankel. Yi Disclaimer: Yi Disclaimer: This electronic medical record was generated, in whole or in part, using a voice recognition dictation system. Departure Departure: Impression: Primary Impression: Obstruction of colon Additional Impression: Colon cancer Qualified Codes: C18.9 - Malignant neoplasm of colon, unspecified Disposition: 02 SHORT TERM HOSPITAL Condition: STABLE Referrals: MICHELLE PENNINGTON MD, MPH (PCP) CRISTIANO VILLALBA APRN Oct 15, 2021 17:14
[2021-10-15 17:18] LABS: BASO % 1 % (0-3); EOS % 0 % (0-3); HEMOGLOBIN 13.8 g/dL (13.0-17.5); LYMPH # 0.9 x10^3/uL (1.0-4.8); LYMPH % 11 % (24-48); MEAN CORPUSCULAR HEMOGLOBIN 32 pg (25-35); MEAN CORPUSCULAR HGB CONC 33 g/dL (31-37); MEAN CORPUSCULAR VOLUME 98 fL (79-100); MONO # 0.5 x10^3/uL (0.0-1.1); MONO % 6 % (0-9); NEUT # 7.4 x10^3uL (1.8-7.7); NEUT % 83 % (31-73); PLATELET COUNT 358 x10^3/uL (140-400); RED BLOOD COUNT 4.31 x10^6/uL (4.30-5.70); RED CELL DISTRIBUTION WIDTH 13.6 % (11.5-14.5); WHITE BLOOD COUNT 8.9 x10^3/uL (4.0-11.0)
[2021-10-15 17:29] LABS: CALCIUM 9.3 mg/dL (8.5-10.1); CREATININE 2.2 mg/dL (0.7-1.3); GFR 35.6; POTASSIUM 4.6 mmol/L (3.5-5.1)
[2021-10-15 17:35] LABS: ALBUMIN 3.3 g/dL (3.4-5.0); ALBUMIN/GLOBULIN RATIO 0.7 (1.0-1.7); TOTAL BILIRUBIN 0.2 mg/dL (0.2-1.0); TOTAL PROTEIN 7.8 g/dL (6.4-8.2)
--- NOTE | 2021-10-15 17:59 | RAD ---
EXAM: CT Abdomen and Pelvis with IV contrast CLINICAL HISTORY: Reason: DIFFUSE ABDOMINAL PAIN, COLITIS, COMPARE TO RECENT CT 10/03 / . Instruct ions: REDUCED DOSE TO 60ML IV OMNI 300 / History: . COMPARISON: 10/09/2021 and 09/21/2021 TECHNIQUE: Helical CT of the abdomen and pelvis was performed following the administration of intrave nous contrast. Without oral contrast Axial, coronal and sagittal reformatted images were generated. PQRS compliance statement - One or more of the following individualized dose reduction techniques wer e utilized for this study: 1. Automated exposure control 2. Adjustment of the mA and/or kV according to patient size 3. Use of iterative reconstruction technique FINDINGS: Lower Chest: Visualized lung bases are clear. Minimal subsegmental atelectasis within the right middle lobe. Heart size is normal. Abdomen and Pelvis: Redemonstrated several hypoattenuating lesions seen throughout the liver, largest lesion resides in t he right hepatic lobe measuring up to 4 cm. The gallbladder is unremarkable. No biliary dilation. The spleen, adrenals, and pancreas are unremarkable. No perinephric inflammation or hydronephrosis. No obstructing nephrolithiasis or hydroureteronephrosi s. Redemonstrated 4.5 cm area of wall thickening with severe luminal narrowing secondary to a intralumin al mass at the distal sigmoid colon as seen on axial image 70 and sagittal image 29. Interval extensi ve progressive distention of the large bowel appears to be originating from the area of severe narrow ing with fluid and air distending the large bowel up to 7.3 cm in maximal diameter. There is no signi ficant bowel wall thickening or surrounding inflammatory changes. Appendix is normal. There is no terrence dence of volvulus at this time. Small bowel is unremarkable. No free intra-abdominal air or free flui d. No pathologically enlarged abdominal or pelvic adenopathy. Vasculature appears normal in course and c aliber. Urinary bladder is unremarkable. Similar appearance of the enlarged prostate gland. No suspicious or acute osseous abnormalities. Intra-abdominal wall is unremarkable. IMPRESSION: 1. Redemonstrated intraluminal mass in the distal sigmoid colon likely resulting in high-grade partia l obstruction as there is interval development of air and fluid distention of the entire portion of t he large bowel, currently measuring up to 7.3 cm in maximal diameter. There is no apparent colonic wa ll thickening or surrounding inflammatory changes. 2. Similar several hypoattenuating lesions in the liver highly suspicious for hepatic metastasis. Cor relation with prior imaging or MRI. 3. Other chronic/incidental findings, as above. Electronically signed by: Trav Heath DO (10/15/2021 5:57 PM) [facility]
[2021-10-15] MEDS ORDERED: ONDANSETRON PF 4 MG/2 ML VIAL. ONE (19:20)
[2021-10-15] MEDS ORDERED: ONDANSETRON PF 4 MG/2 ML VIAL. IVP ONE (19:30)
[2021-10-15] MEDS ORDERED: IV NORMAL SALINE 1,000ML 1,000 ML IV ONE (20:00)
[2021-10-15 20:07] VITALS: BP 136/80
== END 2021-10-15 21:30 | disposition short-term general hospital (02) ==
LOC: ER 14:47
DX: K56.609 Unspecified intestinal obstruction, unspecified as to partial versus complete obstruction (principal); C18.9 Malignant neoplasm of colon, unspecified; I10 Essential (primary) hypertension; F17.200 Nicotine dependence, unspecified, uncomplicated
CPT/HCPCS: 36415; 74177; 80053; 83605; 85025; 96361; 96374; 96375; 96376; 99285; J2405; J3010; J7030; Q9967